=== PATIENT | female | born 1985 | race Two or more races ===

== ENCOUNTER 2019-12-29 13:25 | Inpatient (IN) | payer OTHER ==
[~2019-12-29] VITALS: Ht 152.4 cm; Wt 71.8 kg
[2019-12-29 13:31] VITALS: BP 118/80
[2019-12-29] MEDS ORDERED: BETAMETHASONE 6 MG/ML, 5ML IM ONE ×2 (16:36→16:51)
[2019-12-29] MEDS: BETAMETHASONE 6 MG/ML, 5ML IM SCH (16:54)
[2019-12-29 17:17] LABS: BASOPHILS # (AUTO) 0.02 x10^3/uL (0-0.1); BASOPHILS % (AUTO) 0 % (0-1); EOSINOPHILS # (AUTO) 0.06 x10^3/uL (0-0.4); EOSINOPHILS % (AUTO) 1 % (1-7); LYMPHOCYTES # (AUTO) 1.79 x10^3/uL (1-3.4); LYMPHOCYTES % (AUTO) 20 % (22-44); MD NO; MEAN CORPUSCULAR HEMOGLOBIN 33.2 pg (27.0-34.8); MEAN CORPUSCULAR HGB CONC 33.8 g/dL (32.4-35.8); MEAN CORPUSCULAR VOLUME 98.2 fL (80-100); MEAN PLATELET VOLUME 9.9 fL (7.4-10.4); MONOCYTES # (AUTO) 0.69 x10^3/uL (0.2-0.8); MONOCYTES % (AUTO) 8 % (2-9); NEUTROPHILS # (AUTO) 6.28 x10^3/uL (1.8-6.8); NEUTROPHILS % (AUTO) 71 % (42-75); PLATELET COUNT 200 x10^3/uL (130-400); RED BLOOD COUNT 3.71 x10^6/uL (3.82-5.3); RED CELL DISTRIBUTION WIDTH 13.6 % (9.6-15.2)
[2019-12-29] MEDS: AZITHROMYCIN 500 MG in SODIUM CHLORIDE 0.9% 250 ML IV SCH (17:30)
[2019-12-29] MEDS: LACTATED RINGERS 1,000 ML IV PRN (17:30)
[2019-12-29 19:25] VITALS: BP 132/80
[2019-12-29] MEDS: AMPICILLIN 2 GM in SODIUM CHLORIDE 0.9% 100 ML IV SCH (20:20)
[2019-12-30] MEDS: AMPICILLIN 2 GM in SODIUM CHLORIDE 0.9% 100 ML IV SCH ×4 (01:56→19:56)
[2019-12-30] MEDS: LACTATED RINGERS 1,000 ML IV PRN ×2 (07:11→17:03)
[2019-12-30 08:16] VITALS: BP 117/73
[2019-12-30] MEDS: SERTRALINE 100MG TABLET PO SCH (08:50)
[2019-12-30 14:47] VITALS: BP 101/55
[2019-12-30] MEDS: BETAMETHASONE 6 MG/ML, 5ML IM SCH (17:03)
[2019-12-30] MEDS: AZITHROMYCIN 500 MG in SODIUM CHLORIDE 0.9% 250 ML IV SCH (17:28)
[2019-12-30 20:30] VITALS: BP 103/61
[2019-12-31] MEDS: AMPICILLIN 2 GM in SODIUM CHLORIDE 0.9% 100 ML IV SCH ×4 (02:11→19:59)
[2019-12-31 02:21] VITALS: BP 113/65
[2019-12-31] MEDS: LACTATED RINGERS 1,000 ML IV PRN ×2 (08:51→22:00)
[2019-12-31] MEDS ORDERED: NEWBORN KIT ONE (09:06)
[2019-12-31] MEDS: SERTRALINE 100MG TABLET PO SCH (09:09)
[2019-12-31] MEDS ORDERED: METOCLOPRAMIDE 5 MG/ML, 2ML IV ONE (09:30)
[2019-12-31] MEDS ORDERED: SODIUM CITRATE/CITRIC ACID 30 ML UDC PO ONE (09:30)
[2019-12-31] MEDS ORDERED: LACTATED RINGERS 1,000 ML IVBOLUS ONE (09:30)
[2019-12-31] MEDS: AZITHROMYCIN 500 MG in SODIUM CHLORIDE 0.9% 250 ML IV SCH (16:53)
[2019-12-31 19:33] VITALS: BP 111/68
[2020-01-01] MEDS: AMPICILLIN 2 GM in SODIUM CHLORIDE 0.9% 100 ML IV SCH (01:58)
[2020-01-01 02:44] LABS: BASOPHILS # (AUTO) 0.03 x10^3/uL (0-0.1); BASOPHILS % (AUTO) 0 % (0-1); EOSINOPHILS # (AUTO) 0.03 x10^3/uL (0-0.4); EOSINOPHILS % (AUTO) 0 % (1-7); LYMPHOCYTES # (AUTO) 1.51 x10^3/uL (1-3.4); LYMPHOCYTES % (AUTO) 24 % (22-44); MD NO; MEAN CORPUSCULAR HEMOGLOBIN 33.6 pg (27.0-34.8); MEAN CORPUSCULAR HGB CONC 34.6 g/dL (32.4-35.8); MEAN CORPUSCULAR VOLUME 96.9 fL (80-100); MEAN PLATELET VOLUME 10.2 fL (7.4-10.4); MONOCYTES # (AUTO) 0.74 x10^3/uL (0.2-0.8); MONOCYTES % (AUTO) 12 % (2-9); NEUTROPHILS # (AUTO) 4.12 x10^3/uL (1.8-6.8); NEUTROPHILS % (AUTO) 64 % (42-75); PLATELET COUNT 157 x10^3/uL (130-400); RED BLOOD COUNT 2.74 x10^6/uL (3.82-5.3); RED CELL DISTRIBUTION WIDTH 13.6 % (9.6-15.2)
[2020-01-01] MEDS: LACTATED RINGERS 1,000 ML IV PRN (03:05)
[2020-01-01] MEDS ORDERED: FENTANYL PF 100 MCG/2ML ONE (07:23)
[2020-01-01] MEDS ORDERED: METOCLOPRAMIDE 5 MG/ML, 2ML ONE (07:28)
[2020-01-01] MEDS ORDERED: SODIUM CITRATE/CITRIC ACID 30 ML UDC ONE (07:28)
[2020-01-01] MEDS ORDERED: CEFAZOLIN 1,000 MG ONE ×2 (08:10)
[2020-01-01] MEDS ORDERED: OXYTOCIN 10 UNITS/ML, 1ML ONE ×4 (08:10)
[2020-01-01] MEDS ORDERED: EPHEDRINE 50 MG/ML, 1ML ONE (08:11)
[2020-01-01] MEDS ORDERED: AZITHROMYCIN 500 MG in SODIUM CHLORIDE 0.9% 250 ML IV STA (08:45)
[2020-01-01] MEDS: SERTRALINE 100MG TABLET PO SCH (09:00)
[2020-01-01] MEDS ORDERED: KETOROLAC 30 MG/1 ML ONE (09:40)
[2020-01-01] MEDS ORDERED: LACTATED RINGERS 1,000 ML IV SCH (10:12)
[2020-01-01] MEDS ORDERED: OXYTOCIN 30U/ 0.9% NaCL 500ML 500 ML ONE (10:27)
[2020-01-01] MEDS ORDERED: MORPHINE SULFATE 4 MG/ML, 1ML IVPush PRN ×2 (10:30)
[2020-01-01] MEDS ORDERED: DEXAMETHASONE 4 MG/ML, 1ML IV PRN (10:30)
[2020-01-01] MEDS ORDERED: METHYLERGONOVINE 0.2 MG/ML IM PRN (10:30)
[2020-01-01] MEDS ORDERED: HALOPERIDOL 5 MG/ML IV PRN (10:30)
[2020-01-01] MEDS ORDERED: METOCLOPRAMIDE 5 MG/ML, 2ML IV PRN (10:30)
[2020-01-01] MEDS ORDERED: ACETAMINOPHEN 325 MG TABLET PO PRN (10:30)
[2020-01-01] MEDS: KETOROLAC 30 MG/1 ML IV SCH ×3 (10:30→21:53)
[2020-01-01] MEDS ORDERED: ONDANSETRON 2MG/ML, 2ML IV PRN ×2 (10:30)
[2020-01-01] MEDS ORDERED: OXYcodone 5 MG/5 ML ORAL.SOL UDC PO PRN (10:30)
[2020-01-01] MEDS ORDERED: FENTANYL PF 100 MCG/2ML IV PRN (10:30)
[2020-01-01] MEDS ORDERED: DIPHENHYDRAMINE 50 MG/ML, 1ML IVPush PRN (10:30)
[2020-01-01] MEDS ORDERED: CALCIUM CARBONATE 500 MG TAB.CHEW PO PRN (10:30)
[2020-01-01] MEDS ORDERED: DIPH,PERTUSS(ACELL),TET VAC/PF NC IM-VACC PRN (10:30)
[2020-01-01] MEDS ORDERED: MISOPROSTOL 200 MCG TABLET SL PRN (10:30)
[2020-01-01] MEDS: OXYTOCIN 30U/ 0.9% NaCL 500ML 500 ML IV SCH ×2 (10:57→20:12)
[2020-01-01] MEDS: LACTATED RINGERS 1,000 ML IV SCH ×2 (11:03→20:12)
[2020-01-01] MEDS ORDERED: OXYcodone IR 5MG TABLET ONE (11:25)
[2020-01-01] MEDS: OXYcodone IR 5MG TABLET PO PRN ×3 (11:27→20:25)
[2020-01-01 12:30] VITALS: BP 130/78
[2020-01-01] MEDS: ACETAMINOPHEN 325 MG TABLET PO PRN (15:55)
[2020-01-01 16:04] VITALS: BP 145/88
[2020-01-01 17:33] LABS: BASOPHILS # (AUTO) 0.04 x10^3/uL (0-0.1); BASOPHILS % (AUTO) 1 % (0-1); EOSINOPHILS # (AUTO) 0.03 x10^3/uL (0-0.4); EOSINOPHILS % (AUTO) 0 % (1-7); LYMPHOCYTES # (AUTO) 1.73 x10^3/uL (1-3.4); LYMPHOCYTES % (AUTO) 20 % (22-44); MD NO; MEAN CORPUSCULAR HEMOGLOBIN 33.5 pg (27.0-34.8); MEAN CORPUSCULAR HGB CONC 34.3 g/dL (32.4-35.8); MEAN CORPUSCULAR VOLUME 97.7 fL (80-100); MEAN PLATELET VOLUME 10.2 fL (7.4-10.4); MONOCYTES # (AUTO) 0.75 x10^3/uL (0.2-0.8); MONOCYTES % (AUTO) 9 % (2-9); NEUTROPHILS # (AUTO) 6.03 x10^3/uL (1.8-6.8); NEUTROPHILS % (AUTO) 70 % (42-75); PLATELET COUNT 166 x10^3/uL (130-400); RED BLOOD COUNT 2.91 x10^6/uL (3.82-5.3); RED CELL DISTRIBUTION WIDTH 13.6 % (9.6-15.2)
[2020-01-01 19:00] VITALS: BP 125/81
[2020-01-01] MEDS: DOCUSATE 100 MG CAPSULE PO SCH (21:00)
[2020-01-02 00:20] VITALS: BP 110/77
[2020-01-02] MEDS: KETOROLAC 30 MG/1 ML IV SCH ×2 (04:14→20:48)
[2020-01-02 04:15] VITALS: BP 120/78
[2020-01-02] MEDS: OXYcodone IR 5MG TABLET PO PRN ×4 (04:22→18:22)
[2020-01-02] MEDS: OXYTOCIN 30U/ 0.9% NaCL 500ML 500 ML IV SCH ×2 (06:12→16:12)
[2020-01-02] MEDS: LACTATED RINGERS 1,000 ML IV SCH ×2 (06:12→16:12)
[2020-01-02 08:45] VITALS: BP 118/80
[2020-01-02] MEDS ORDERED: KETOROLAC 30 MG/1 ML ONE (09:24)
[2020-01-02] MEDS: DOCUSATE 100 MG CAPSULE PO SCH ×2 (09:26→20:48)
[2020-01-02] MEDS: SERTRALINE 100MG TABLET PO SCH (09:26)
[2020-01-02] MEDS: ACETAMINOPHEN 325 MG TABLET PO PRN ×3 (09:26→18:22)
[2020-01-02] MEDS: PRENATAL VIT/IRON/FA 1 EACH TABLET PO SCH (09:26)
[2020-01-02] MEDS: KETOROLAC 30 MG/1 ML IM SCH ×2 (09:30→15:11)
[2020-01-02 19:30] VITALS: BP 127/81
[2020-01-03] MEDS: OXYTOCIN 30U/ 0.9% NaCL 500ML 500 ML IV SCH ×4 (02:12→22:12)
[2020-01-03] MEDS: LACTATED RINGERS 1,000 ML IV SCH ×3 (02:12→22:12)
[2020-01-03] MEDS: KETOROLAC 30 MG/1 ML IV SCH ×4 (03:02→21:30)
[2020-01-03] MEDS: ACETAMINOPHEN 325 MG TABLET PO PRN (03:05)
[2020-01-03] MEDS: OXYcodone IR 5MG TABLET PO PRN (03:05)
[2020-01-03] MEDS: SIMETHICONE 80 MG CHEW TAB PO PRN ×3 (03:06→23:17)
[2020-01-03] MEDS: PRENATAL VIT/IRON/FA 1 EACH TABLET PO SCH (09:00)
[2020-01-03] MEDS: SERTRALINE 100MG TABLET PO SCH (09:00)
[2020-01-03] MEDS: DOCUSATE 100 MG CAPSULE PO SCH ×2 (09:00→21:00)
[2020-01-03 12:00] VITALS: BP 131/83
[2020-01-03 19:10] VITALS: BP 132/86
[2020-01-03] MEDS ORDERED: IBUPROFEN 800 MG TABLET ONE (23:14)
[2020-01-03] MEDS: IBUPROFEN 800 MG TABLET PO PRN (23:18)
[2020-01-04] MEDS: OXYTOCIN 30U/ 0.9% NaCL 500ML 500 ML IV SCH (03:51)
[2020-01-04] MEDS: LACTATED RINGERS 1,000 ML IV SCH (03:51)
[2020-01-04] MEDS: OXYcodone IR 5MG TABLET PO PRN ×3 (04:59→15:29)
[2020-01-04 07:40] VITALS: BP 132/87
[2020-01-04] MEDS ORDERED: SERTRALINE 50MG TABLET PO SCH (09:00)
[2020-01-04] MEDS: PRENATAL VIT/IRON/FA 1 EACH TABLET PO SCH (09:53)
[2020-01-04] MEDS: IBUPROFEN 800 MG TABLET PO PRN ×2 (09:53→18:17)
[2020-01-04] MEDS: DOCUSATE 100 MG CAPSULE PO SCH (09:53)
[2020-01-04] MEDS ORDERED: IBUP-1223 PO (16:35)
[2020-01-04] MEDS ORDERED: DOCU-131 PO (16:35)
[2020-01-04] MEDS ORDERED: OXYC-302 PO (16:35)
[2020-01-07] MEDS ORDERED: IBUPROFEN 800 MG TABLET PO PRN (15:00)
== END 2020-01-04 18:45 | disposition home or self-care (01) | DRG 788 ==
LOC: LDOP 13:25 → LDIP 16:31 → UNDOADMIN 16:39 → 2NW 01-01 12:35
PROVIDERS: ADMIT Obstetrics & Gynecology; ATTEND Obstetrics & Gynecology
PROC: 10D00Z1 Extraction of Products of Conception, Low, Open Approach (ICD-10-PCS; principal; 2020-01-01)
DX: O34.211 Maternal care for low transverse scar from previous cesarean delivery (principal); K66.0 Peritoneal adhesions (postprocedural) (postinfection); O42.913 Preterm premature rupture of membranes, unspecified as to length of time between rupture and onset of labor, third trimester; O69.2XX0 Labor and delivery complicated by other cord entanglement, with compression, not applicable or unspecified; O76 Abnormality in fetal heart rate and rhythm complicating labor and delivery; Z37.0 Single live birth; Z3A.34 34 weeks gestation of pregnancy; Z87.59 Personal history of other complications of pregnancy, childbirth and the puerperium; Z90.5 Acquired absence of kidney
CPT/HCPCS: 36415; 82803; 84112; 85025; 86592; 86850; 86900; 86923; 87081; 89060; G0378; J0290; J0456; J0690; J0702; J1885; J3010; J2270; J2590; J2765; J7050; J7120; Q0114